=== PATIENT | female | born 1990 | race African-American/Black ===

== ENCOUNTER 2025-05-15 23:41 | Inpatient (IN) | payer MEDICAID ==
[~2025-05-15] VITALS: Ht 162.6 cm; Wt 94.3 kg
[~2025-05-15 23:41] MED LIST: FERR-7; PRENCAP21
[2025-05-16] MEDS ORDERED: LORazepam 2MG/ML-1ML VIAL IV ONE (00:30)
[2025-05-16] MEDS: MAGNESIUM SULFATE 40MG/ML 1,000 ML IV ONE (00:38)
[2025-05-16] MEDS: MAGNESIUM SULFATE 100 ML IV ONE ×2 (00:38→02:22)
[2025-05-16 00:51] LABS: Hemoglobin 10.9 g/dL (12.2-16.2)
[2025-05-16 00:52] LABS: Hematocrit 34.0 % (36.0-46.0); Mean Corpuscular Hemoglobin 22.5 pg (28.0-32.0); Mean Corpuscular Volume 70.0 fL (80.0-100.0); Nucleated Red Blood Cells % 0.1 %
[2025-05-16 00:54] LABS: Urine Budding Yeast OCCASIONAL /hpf (None Seen); Urine Protein, UAD 2+ (Negative)
[2025-05-16 01:04] LABS: Alanine Aminotransferase 23 U/L (7-40); Albumin 3.5 g/dL (3.2-4.8); Alkaline Phosphatase 96 U/L (46-116); Anion Gap 10 (5-15); BUN/Creatinine Ratio 15.9 (10.0-20.0); Blood Urea Nitrogen 10 mg/dL (9-23); Carbon Dioxide 24 mmol/L (20-31); Chloride 106 mmol/L (98-107); Glucose 84 mg/dL (74-106); Sodium 140 mmol/L (136-145); Total Protein 6.0 g/dL (5.7-8.2); Uric Acid 4.1 mg/dL (3.1-7.8)
[2025-05-16 01:05] LABS: Bilirubin, Total 0.5 mg/dL (0.2-1.0)
[2025-05-16 01:06] LABS: Calcium 8.6 mg/dL (8.7-10.4); Potassium 3.4 mmol/L (3.5-5.1)
[2025-05-16 01:07] LABS: INR 0.97 (0.9-1.15); Partial Thromboplastin Time 24.1 SEC (24.5-34.5); Prothrombin Time 10.3 sec (9.3-11.8)
[2025-05-16 01:09] LABS: Amphetamine Screen, Urine Neg (NEGATIVE); Barbiturate Scree,Urine Neg (NEGATIVE); Benzodiazephine Screen, Urine Neg (NEGATIVE); Cannabinoid Screen, Urine Neg (NEGATIVE); Cocaine Screen, Urine Neg (NEGATIVE); Opiate Scree,Urine Neg (NEGATIVE); Phencyclidine Screen, Urine Neg (NEGATIVE); Protein, Urine 232.4 mg/dL (1-14)
[2025-05-16] MEDS ORDERED: LABETALOL HCL 200 MG TAB PO ONE ×2 (01:30→03:01)
--- NOTE | 2025-05-16 01:48 | DVHHP ---
CHIEF COMPLAINT: Headaches, visual disturbance, right upper quadrant pain. HISTORY OF PRESENT ILLNESS: The patient is a 35-year-old 10, para 6, with EDC 28. Estimated gestational age of 34 weeks. Admitted for severe preeclampsia. The patient's uric acid is 4.1. UDS negative. UPC is 1.1. Platelets are normal. The patient was started on MAC, hydralazine, and Celestone. She is not daylin. PAST MEDICAL HISTORY: None. PAST SURGICAL HISTORY: None. SOCIAL HISTORY: Six vaginal deliveries. FAMILY HISTORY: None. ALLERGIES: No known drug allergies. REVIEW OF SYSTEMS: Consistent with HPI. PHYSICAL EXAMINATION: VITAL SIGNS: Currently 150/80, previously was 220/110. HEENT: Within normal limits. CARDIOVASCULAR: Regular rate and rhythm. LUNGS: Clear to auscultation. BREASTS: Symmetrical, no masses. ABDOMEN: Gravid with positive heart. PELVIC: Cervix closed, thick, high. EXTREMITIES: +3 edema. IMPRESSION: ? Intrauterine at 34 weeks with severe preeclampsia. ? AMA. PLAN: Stabilized, transfer to [facility]. I spoke to Dr. Suresh, who will arrange for transfer. The patient's status is stable. Awaiting ultrasound. Transfer to [facility]. DO JUANJO Gann TID: [id number] RECEIPT: [id number]
[2025-05-16] MEDS: BETAMETHASONE ACET (30mg/5ml) 5ml Vial 6mg/ml IM ONE (02:18)
[2025-05-16] MEDS: MAGNESIUM SULFATE 40MG/ML 1,000 ML IV SCH (02:26)
[2025-05-16] MEDS ORDERED: hydrALAZINE HCL 20 MG/ML VL IV ONE (03:01)
--- NOTE | 2025-05-16 03:30 | DVH ---
LIMITED OB ULTRASOUND > 14 WKS: HISTORY: SEVERE PREECLAMPSIA/HTN CRISIS/ PT OF OTHER FACILITY TECHNIQUE: Multiple real-time grayscale images of the gravid uterus with duplex Doppler color flow and M-mode spectral analysis. FINDINGS: IUP single live fetus at 32 weeks and 5 days based on composite averages of the BPD, head circumference, abdominal circumference and femur length Estimated weight 1943 grams heart rate 144 beats per minute TIMOTHY 12 cm Cephalic presentation Posterior/fundal Placenta without previa or abruption. Grade 1 IMPRESSION: 1. Average sonographic gestational age of 32 weeks and 5 days with JENS of 07/06/2025. 2. No placenta previa or abruption is noted.
--- NOTE | 2025-05-16 09:56 | DVHDS2 ---
Physician Discharge Progress N Final Diagnosis: IUP at 34weeks Pre-eclampsia with severe features Contractions Grandmultiparity Obesity h/o of Bariatric Surgery Category I FHR Tracing Pt is being transferred to [facility] for HLOC. Operations or Procedures: Operations or Procedures 35yo G10, 4146; 1 set of twins del @ 36w EGA, All . Current with EDC of 06/27/25, EGA 33weeks 6days presents to Place with report of elevated BPs at home. She reports RODAS, blurred vision, RUQ pain, no nausea, normal FM, mild irregular cramps. BP trend at home 183/120, 187/113, 196/116. Lopez member. Last visit with OB Provider was 04/20/25 and next appt scheduled for 05/17/25. BP elevated during her last visit, had blood drawn for tests and received e-mail from her doctor on 04/23/25 stating that lab tests were normal; Patient showed the e-mail on her phone to [facility]. h/o Bariatric Surgery (Gastric Sleeve) in 2020 h/o elevated BP with last in 2023; had to be induced at 38 weeks EGA for same reason O: BP trend here: 212/127, 235/134; 180/103 after first dose of Hydralazine 3+ pitting edema DTR 3+, no clonus VE: 1cm/ 50%/ -3-2 EFM: FHR: 150bpm , moderate variability, Accelerations present, no deceleration Tocometer: Contractions noted; initially high frequency low amplitude, later evolved to q 5min x 60 seconds and felt by patient A: Preeclampsia with severe Features h/o of preeclampsia with last Advanced Maternal Age Grand multipara Contractions Obesity h/o Gastric Sleeve Surgery P: Management in collaboration with Dr Wallace Pre-eclampsia labs OB Ultrasound IV line x2 Hydralazine per protocol Magnesium 4g Loading then 2G /hour Labetalol 300mg by mouth x 1 dose Celestone 12mg i.m Hanna cath Transfer to a Higher Level of Care ( Arrangement and Contacts by Dr. Wallace.) Repeat SVE at 02:35 before to [facility] to [facility]; no cervical change Patient taken away from the unit on a gurney, in stable condition. Condition on Discharge: Higher Level of Care Disposition: Acute Care Facility Discharge Instructions: Diet: See Comment Diet comment: NPO Activity: See Comment Activity comment: Patient is being transfered to higher level of care Follow Up/Referral: Transfered to Higher Level of Care Medications: Transported with IV Fluid and Magnesium Sulfate infusing Follow Up Care: Discharge Statement: "Patient was advised to return to the ER or call 911 if any headaches, dizziness, shortness of breath, chest pain, abdominal pain, bleeding, fevers, or worsening of medical condition. Patient was counseled about treatment plan, medications, possible side effects, patientverbalized understanding. All questions were answered to the best of my ability. This discharge took greater then 30 minutes in planning, reviewing documentation, counseling the patient, and discussing with other team members." Visit Coding OBGYN Date of Service: May 16, 2025 Billing Provider: CHUCK COTTON CNM [employer] Common Visit Codes: 77737-PYL/OBS SAME DATE (HIGH) [employer] Procedure Codes: 02053-63- NON-STRESS TEST CHUCK COTTON CNM May 16, 2025 09:56
--- NOTE | 2025-05-17 15:07 | DVHTS ---
Transfer Summary Transfer Summary Date of Admission May 16, 2025 at 00:55 Date of Transfer: May 16, 2025 Transfer Diagnosis SEVERE PIH,AMA,MORBID OBESITY Brief Hx & Hospital Course: PT IS ADMITTED FOR SEVERE PIH AND TRANSFERRED TO [facility] .ACCEPTING MD IS DR BONE Transfer to: [facility] Discharge Instructions: VIA AIR Transfer Status STABLE Miscellaneous Medications Ferrous Sulfate (Iron), (Reported) Multivit-Min W/Fe-Fa (Ryland ), (Reported) Visit Coding OBGYN Date of Service: May 16, 2025 Billing Provider: ANDREI CR DO STAFFING MGR Common Visit Codes: 94915-USHXESC OBS CARE (HIGH), 10673-XRE/OBS DISCH DAY >30MIN STAFFING MGR Consultation Codes: 33961-J/U INPATIENT CONSULT (HIGH) ANDREI CR DO May 17, 2025 15:07
== END 2025-05-16 03:02 | disposition short-term general hospital (02) | DRG 566 ==
LOC: LDRP 23:41 → OBSVTOIN 05-16 00:55
PROVIDERS: ADMIT Obstetrics & Gynecology; ATTEND Obstetrics & Gynecology
DX: O14.13 Severe pre-eclampsia, third trimester (principal); E66.01 Morbid (severe) obesity due to excess calories; Z3A.34 34 weeks gestation of pregnancy; O99.213 Obesity complicating pregnancy, third trimester; Z79.899 Other long term (current) drug therapy
CPT/HCPCS: 36415; 59025; 76805; 80053; 80307; 81001; 82570; 83615; 84156; 84550; 85025; 85610; 85730; 86703; 86762; 86803; 86850; 86900; 86901; 87340; 94760; 96360; 96361; 96365; 96366; 96372; 96374; 96375; G0378